=== PATIENT | female | born 1980 | race Caucasian/White ===

== ENCOUNTER 2023-03-16 00:51 | Day surgery (SDC) | payer OTHER, BC, SELFPAY ==
[2023-03-08 14:08] VITALS: BMI 43.0
--- NOTE | 2023-03-08 14:22 | PC.NURSE ---
Report to the Outpatient Waiting Room, entrance under the green pavilion located off [facility], at time 1000 on date 03/16/23. Planned Procedure Time: 1200. Time changes happen often and if your time is changed the preop area will call you the afternoon before. - You and your visitor will be asked to self-screen and do not enter if you have any COVID symptoms. - A mask is optional within the hospital at this time. Patients may have clear liquids (water, carbonated beverages, clear teas, apple juice) until 3 hours prior to surgery with a maximum of 20 ounces. - No food from midnight until time of surgery Take the following medications with a SIP of water the morning of surgery: DULOXETINE, CONTROL PILL DO NOT STOP ANY OF YOUR OTHER PRESCRIPTION MEDICATIONS PRIOR TO SURGERY ?EXCEPT THE FOLLOWING Medications to discontinue per physician: N/A Date to take last dose: N/A Please no make-up, nail amharic, hairspray, perfume, deodorant, or body powder the day of surgery. No jewelry (including any body piercings) or valuables the day of surgery, leave them at home. Please take a shower or bath the night before, or the morning of, surgery with an antibacterial soap. Wear comfortable, loose fitting clothing. - Jewelry must be removed prior to entering the operating room. Rings and piercings that are not removed may be cut off. - The hospital will not accept responsibility for valuables. - Please leave all valuables, including medications, at home the day of surgery. If you are going home after surgery, a licensed combine driver must drive you home. - NO public transportation without another adult if you receive anesthesia. - We recommend that an adult stay with you for 24 hours following discharge. - We also recommend that you do not drive, make important decision, drink alcoholic beverages, or take any drugs that were not prescribed by your health care provider for at least 24 hours after your discharge time. Follow any additional instructions given to you from your surgeon. If you or anyone in your household have experienced Covid symptoms in the past week, please notify your surgeon or the nurse liaison at the phone number below for possible testing. Telephone instructions given to PT - GONZALES PEREZ and asked if any additional questions and then verbalized understanding. Patient advised to call surgeon office or pre surgery nurse liaison [phone] if any additional questions.
[2023-03-16] VITALS (12 sets, daily range): BP systolic 138–172; BP diastolic 76–89; PULSE 81–108; RESP 15–21; TEMP 36.5; O2SAT 97–100
--- NOTE | 2023-03-16 01:49 | PM.IMHP ---
H&P: HPI History of Present Illness Date/Time: 03/16/23 01:49 Chief Complaint: Heavy bleeding. Narrative: 42 y/o nulligravida with heavy, irregular bleeding episodes despite treatment with a combined oral contraceptive. She does not desire childbearing. She is interested in surgical management of her problems. Review of Systems Review of Systems: All systems reviewed & are unremarkable except as noted in HPI and below PMFSH Past Medical History Medical History GERD (gastroesophageal reflux disease) Hyperlipemia Insomnia Kidney stones Migraines Surgical History Surgical History H/O sinus surgery History of ankle surgery History of back surgery History of lithotripsy Hx of tympanostomy tubes Social History Social History Smoking status: Never smoker Alcohol intake: never Substance use: never Substance use type: does not use Living arrangements: alone Spiritual care concerns: No Meds Home Medications and Allergies Home Medications Medication Instructions Recorded Confirmed Type L norgest/E estradiol-E estrad 1 tablet PO DAILY 03/08/23 03/08/23 History 0.15 mg-30 mcg (84)/10 mcg(7) tabs,3mos (Seasonique) amitriptyline 100 mg tablet 100 mg PO HS 03/08/23 03/08/23 History atogepant 30 mg tablet (Qulipta) 30 mg PO DAILY 03/08/23 03/08/23 History atorvastatin 20 mg tablet 20 mg PO DAILY 03/08/23 03/08/23 History duloxetine 60 mg capsule,delayed 60 mg PO DAILY 03/08/23 03/08/23 History release omeprazole 40 mg capsule,delayed 40 mg PO DAILY 03/08/23 03/08/23 History release sumatriptan succinate 6 mg/0.5 mL 6 mg subcut PRN PRN Migraine 03/08/23 03/08/23 History subcutaneous pen injector Headache topiramate 200 mg tablet 200 mg PO HS 03/08/23 03/08/23 History zolpidem 12.5 mg tablet,extended 12.5 mg PO HS 03/08/23 03/08/23 History release,multiphase Allergies Allergy/AdvReac Type Severity Reaction Status Date / Time amoxicillin Allergy Rash Verified 03/08/23 14:09 Exam Const: Orientation/consciousness: patient oriented x3 Other: Well-developed, well-nourished female in no acute distress. Neck: Thyroid: thyroid normal Lymphatic: no lymphadenopathy noted (in neck, axilla or inguinal nodes) Resp: Effort & Inspection: normal respiratory effort Auscultation: clear to auscultation bilaterally Cardio: Rate: regular rate Rhythm: regular rhythm Heart sounds: S1 normal heart sound present and S2 normal heart sound present GI: Other: ABD: Soft, nontender, nondistended. No guarding or rebound tenderness. No hepatosplenomegaly. : General: Yes no CVA tenderness Other: External genitalia: normal female hair distribution, without lesion. Urethral meatus: no lesion, non prolapsed. Bladder: no mass, nontender Vagina: well-estrogenized, without lesion or discharge. No cystocele or rectocele. Cervix: no lesion or discharge. Uterus: small, anteverted, freely mobile, nontender Adnexa: no mass or tenderness. Anus/perineum: no lesions, nontender Back/Spine/Pelvis: Back: no CVA tenderness Skin: General skin exam: normal color and no rashes or lesions noted Neuro: General: patient oriented x3 Extrem: Other: Extremities: nontender with no edema Psych: Mental Status: mental status grossly normal Affect: normal affect Assessment and Plan Assessment and plan (1) Menometrorrhagia: Code(s): N92.1 - Excessive and frequent menstruation with irregular cycle Status: Acute Assessment and Plan: A: Menometrorrhagia with desired sterility. P: We have reviewed medical as well as surgical approaches to her problem, and she prefers the latter. Specifically, she would like laparoscopic tubal sterilization, hysteroscopy, dilation and sharp curettage, and endometrial ablatio
[2023-03-16] MEDS: ACETAMINOPHEN 500 MG TABLET 1000 MG PO (12:23)
[2023-03-16] MEDS: KETOROLAC 15 MG/ML VIAL (*BKC) IV PUSH (12:23)
--- NOTE | 2023-03-16 12:30 | WPDANESEPPF ---
Anes - Initial Pre Proc Eval Procedure: Operation Date: 03/16/23 13:30 Proposed Procedures p Laparoscopic Bilateral Tubal Ligation with Fallopian Rings - Riley Rodriguez MD s Hysteroscopy Dilation and Curettage with Leticia Endometrial Ablation - Riley Rodriguez MD Date/Time: 03/16/23 12:30 Surgeon: Riley Rodriguez MD Pre Op Diagnosis: Irg Bleeding, Desire Sterilization Patient Data Age: 42 Gender: F Height: 1.73 m Weight: 130 kg Last Vital Signs Temp 36.5 C 03/16/23 11:27 Pulse 108 H 03/16/23 11:27 Resp 18 03/16/23 11:27 BP 156/89 H 03/16/23 11:27 Pulse Ox 99 03/16/23 11:27 O2 Del Method Room Air 03/16/23 11:27 Allergies Allergy/AdvReac Type Severity Reaction Status Date / Time amoxicillin Allergy Rash Verified 03/16/23 11:39 Home Medications Medication Instructions Recorded Confirmed Type L norgest/E estradiol-E estrad 1 tablet PO DAILY 03/08/23 03/16/23 History 0.15 mg-30 mcg (84)/10 mcg(7) tabs,3mos (Seasonique) amitriptyline 100 mg tablet 100 mg PO HS 03/08/23 03/16/23 History atogepant 30 mg tablet (Qulipta) 30 mg PO DAILY 03/08/23 03/16/23 History atorvastatin 20 mg tablet 20 mg PO DAILY 03/08/23 03/16/23 History duloxetine 60 mg capsule,delayed 60 mg PO DAILY 03/08/23 03/16/23 History release omeprazole 40 mg capsule,delayed 40 mg PO DAILY 03/08/23 03/16/23 History release sumatriptan succinate 6 mg/0.5 mL 6 mg subcut PRN PRN Migraine 03/08/23 03/16/23 History subcutaneous pen injector Headache topiramate 200 mg tablet 200 mg PO HS 03/08/23 03/16/23 History zolpidem 12.5 mg tablet,extended 12.5 mg PO HS 03/08/23 03/16/23 History release,multiphase Patient hx anesthesia problems: post op nausea/vomiting Family hx anesthesia problems: none Results Review: All pre-operative results and documents have been reviewed as part of the pre-operative evaluation. [facility] Past Medical History Medical History GERD (gastroesophageal reflux disease) Hyperlipemia Insomnia Kidney stones Migraines Surgical History Surgical History H/O sinus surgery History of ankle surgery History of back surgery History of lithotripsy Hx of tympanostomy tubes Social History Social History Smoking status: Never smoker Alcohol intake: never Substance use: never Substance use type: does not use Living arrangements: alone Spiritual care concerns: No Anes - Eval Final PreProcedure Day of Procedure 03/16/23 12:30 Patient weight: morbidly obese Heart: regular rate and rhythm Lungs: clear to auscultation Airway: Mallampati scale class III Neurological: alert and oriented Last oral intake: >/= 8 hours ASA classification: III Emergent: no Anesthetic plan: proceed Anesthesia type and monitoring: general ETT and standard monitoring Results Review: All pre-operative results and documents have been reviewed as part of the pre-operative evaluation. Informed Consent: The patient's anesthetic plan and its attendant risks and benefits were discussed with the patient/family/POA. Questions were solicited and answers provided to the satisfaction of the patient/family/POA.
--- NOTE | 2023-03-16 13:32 | WPDHPUPDATE1 ---
History and Physical Update Update Date/Time: 03/16/23 13:32 History and Physical has been reviewed, including an updated exam of the patient. There are NO changes in the patient's condition. Risks, benefits, and alternatives have been discussed and questions answered. Patient agrees to proceed with procedure.
[2023-03-16] MEDS: LIDOCAINE HCL 1% LOCAL INJ 20 ML VIAL INFILTRATE (14:25)
--- NOTE | 2023-03-16 14:46 | P.OP_ITS ---
Procedure Note - Detailed Date of Procedure 03/16/23 Pre-op Diagnosis Menometrorrhagia Desired sterility Post-op Diagnosis Same Procedure Performed Laparoscopic bilateral tubal ligation with Falope rings Hysteroscopy Dilation and sharp curettage Endometrial ablation Surgeon Riley Rodriguez MD Anesthesia General and Local (1% lidocaine) Findings Normal-appearing uterus, bilateral tubes and ovaries, anterior and posterior cul de sac, bilateral uterosacral and round ligaments, and vermiform appendix. On hysteroscopy, the endometrial cavity was unremarkable, and both tubal ostia were seen. Description of Procedure The patient was taken to the operating room where general endotracheal anesthesia was administered. She was prepared and draped in the usual sterile fashion in dorsal lithotomy position. The bladder was drained with a red rubber catheter. A sterile speculum was placed into the vagina. The anterior lip of the cervix was grasped with a single-tooth tenaculum. The acorn uterine manipulator was placed. The speculum was withdrawn. Gloves were changed and attention was turned the abdomen. An infraumbilical skin incision was made with a scalpel. The abdomen was tented and a 5mm bladeless trocar was advanced under direct laparoscopic visualization. Pneumoperitoneum was administered using carbon dioxide gas. A survey of the pelvis and abdomen revealed the findings noted above. A second skin incision was made in the midline above the symphysis pubis and an 8mm bladeless trocar was advanced under direct laparoscopic visualization. The fallopian tube on the right side was followed out to the fimbriated end for identification. It was then grasped in the midportion with the Falope ring applicator. The Falope ring was tented applied. A good loop of tube was noted to be distal to the ring. Hemostasis was excellent. The device was reloaded and the contralateral tube was similarly identified and ligated. An excellent application was noted here as well. The ports were withdrawn. The gas was allowed to escape. The skin incisions were reapproximated using interrupted subcuticular sutures of 4 0 Vicryl. Dermaflex was applied externally. Attention was redirected to the vagina, where the acorn manipulator was withdrawn and the speculum reintroduced. Ten mL of 1% lidocaine was administered in a paracervical block. The cervix was then gently dilated using Hegar dilators until an 8 mm dilator could be passed. Hysteroscopy was performed using sterile saline as a distention medium. Findings are as noted above. Sharp curettage was then performed, and endometrial curettings were collected on a Telfa pad and passed off to be sent to pathology. Finally, the the Leticia device was advanced and endometrial ablation commenced without difficulty. The device was withdrawn and a second look was taken using the hy steroscope. Excellent coverage of the endometrial cavity was noted. The tenaculum was removed. Hemostasis was excellent. Sponge, lap, needle and instrument counts were correct. The patient was awakened and taken to the recovery room in stable condition. I was present and scrubbed through the entire procedure. Implants Falope rings x 2 Estimated Blood Loss 5 Drains No Packing No Pathology Yes (Endometrial curettings) Complications None Condition Stable Disposition PACU
[2023-03-16] MEDS: LACTATED RINGERS 1,000 ML 30 ML IV CONT ×2 (14:51)
[2023-03-16] MEDS: fentaNYL CITRATE INJ (*CRX) 100 MCG/2 ML VIAL 25 MCG IV PUSH ×7 (15:13→16:48)
[2023-03-16] MEDS: ONDANSETRON INJ 4 MG/2 ML VIAL IV PUSH (15:19)
[2023-03-16] MEDS: MIDAZOLAM HCL (*CRX) 2 MG/2 ML VIAL 1 MG IV PUSH (16:08)
[2023-03-16] MEDS: HYDROmorphone HCL INJ (*CRX) 1 MG/ML SYR 0.5 MG IV PUSH ×2 (16:22→16:25)
[2023-03-16] MEDS: diazePAM INJ (*CRX) 10 MG/2 ML SYRINGE 2.5 MG IV PUSH (16:33)
[2023-03-16] MEDS: oxyCODONE HCL (*CRX) 5 MG TAB IR PO (17:02)
[2023-03-16] MEDS: SCOPOLAMINE 1.5 MG PATCH TRANSDERM (17:56)
== END 2023-03-16 18:00 | disposition home or self-care (01) ==
PROVIDERS: PCP Family Medicine; Visit Provider Obstetrics & Gynecology
PROC: (CPT 58671; principal; 2023-03-16 13:30)
PROC: 0U5B8ZZ Destruction of Endometrium, Via Natural or Artificial Opening Endoscopic (ICD-10-PCS; CPT 58563; 2023-03-16 13:30)
DX: N92.1 Excessive and frequent menstruation with irregular cycle (principal); Z30.2 Encounter for sterilization; K21.9 Gastro-esophageal reflux disease without esophagitis; E78.5 Hyperlipidemia, unspecified; G47.00 Insomnia, unspecified; E66.01 Morbid (severe) obesity due to excess calories; Z68.41 Body mass index [BMI] 40.0-44.9, adult
CPT/HCPCS: 58671; 58563; 88305; A4264; A9270; J0330; J1100; J1170; J1885; J2250; J2405; J2704; J3010; J3360; J7120